=== PATIENT | male | born 1980 | race Caucasian/White ===

== ENCOUNTER 2019-06-08 13:02 | Outpatient (CLI) | payer BC | END 2019-06-08 13:03 | disposition home or self-care (01) | LOC: COV 13:02 | PROVIDERS: ATTEND Family Medicine | DX: R05 Cough (principal); R50.9 Fever, unspecified | CPT/HCPCS: 81599 ==

== ENCOUNTER 2020-02-21 00:14 | Outpatient (CLI) | payer BC | END 2020-02-21 00:15 | disposition EMS.NT | LOC: EMS 00:14 | PROVIDERS: ATTEND Surgery | DX: S09.90XA Unspecified injury of head, initial encounter (principal); W01.0XXA Fall on same level from slipping, tripping and stumbling without subsequent striking against object, initial encounter ==

== ENCOUNTER 2022-06-18 08:00 | Outpatient (CLI) | payer BC, OTHER | END 2022-06-18 23:59 | disposition home or self-care (01) | LOC: LAB 08:00 | PROVIDERS: ATTEND Physician Assistant Medical | DX: J02.9 Acute pharyngitis, unspecified (principal) | CPT/HCPCS: 87070; 87077 ==